=== PATIENT | male | born 1940 | race Caucasian/White ===

== ENCOUNTER 2018-05-07 14:17 | Inpatient (IN) | payer MEDICARE, OTHER ==
[2018-05-07] MEDS ORDERED: Fentanyl 100 MCG/2 ML VIAL ONE ×2 (14:23→14:52)
[2018-05-07] MEDS ORDERED: Succinylcholine Chloride 20 MG/ML 10 ml SYRINGE FS ONE (14:26)
[2018-05-07 14:34] LABS: Hemoglobin 16.5 g/dL (14.0-18.0); Mean Corpuscular HGB CONC 35.2 g/dL (32.0-36.0); Mean Corpuscular Hemoglobin 34.3 pg (27.0-31.0); Mean Corpuscular Volume 97.3 fL (78.0-98.0); Mean Platelet Volume 6.4 fL (7.4-10.4); Platelet Count 176 thou/uL (130-400); RBC Distribution Width 12.6 % (11.5-14.5); Red Blood Cell (RBC) Count 4.82 mill/uL (4.70-6.10); White Blood Cell (WBC) Count 22.9 thou/uL (4.8-10.8)
[2018-05-07] MEDS ORDERED: Calcium Chloride 1 GM/10 ML Abboject SYRINGE ONE (14:37)
[2018-05-07 14:39] LABS: PTT 26.8 SEC (22.9-36.1)
[2018-05-07 14:46] LABS: ALT (SGPT) 21 U/L (8-55); AST (SGOT) 40 U/L (5-34); Albumin 3.3 g/dL (3.4-4.8); Alkaline Phosphatase 63 U/L (40-150); Anion Gap 14 mmol/L (10-20); BUN (Urea Nitrogen) 24 mg/dL (8.4-25.7); Calc. Creatinine Clearance 0 mL/min (70-130); Carbon Dioxide 22 mmol/L (23-31); Chloride 105 mmol/L (98-107); Estimated GFR-MDRD 51; Globulin 2.7 g/dL (2.4-3.5); Glucose 186 mg/dL (83-110); Potassium 3.7 mmol/L (3.5-5.1); Sodium 137 mmol/L (136-145)
[2018-05-07 14:51] LABS: INR-International Normal Ratio 1.2; Prothrombin Time 14.8 SEC (12.0-14.7)
[2018-05-07] MEDS ORDERED: fentaNYL Citrate/PF 2,000 MCG in Sodium Chloride 0.9% 60 ML IV SCH ×2 (14:52→17:00)
[2018-05-07] MEDS ORDERED: ISOVUE-370 76%-LOCM 1 ML ONE (14:57)
[2018-05-07 15:00] LABS: Band 5 % (5-11); Eosinophils 2 % (0-10); Lymphocytes 21 % (21-51); MDiff Complete? YES; Monocytes 2 % (0-10); Neutrophil 70 % (42-75); PLT Morphology Comment Appears Adequate
[2018-05-07 15:05] LABS: Troponin I 0.012 ng/mL (< 0.028)
[2018-05-07 15:19] LABS: CKMB 21.2 ng/mL (0-6.6)
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
[2018-05-07 16:10] LABS: CO2 Tension 44.4 mmHg (35.0-45.0); pH, Arterial 7.31 (7.35-7.45)
[2018-05-07 16:11] LABS: Actual Bicarbonate (HCO3a) 21.8 mEq/L (22-28); Base Excess (BEa) -4.3 mEq/L (-2.0 to +3.0); Hematocrit-ABG 35.2 % (42.0-52.0); Hemoglobin (Hb) 11.9 g/dL (14.0-18.0)
[2018-05-07 16:12] LABS: Analyzer IN Cardio ER; Calcium, Ionized 1.3 mmol/L (1.12-1.30); Puncture Site RBA
--- NOTE | 2018-05-07 16:47 | RAD ---
AP CHEST: Indication: Intubation. Comparison: 05-07-18 FINDINGS: The patient has been intubated in the interval. The ET tube tip is seen approximately 5.7 cm above th e level of the brenda. There has been interval placement of a left sided subclavian central venous ca theter with the tip projecting in the region of the brachiocephalic SVC junction. There has been inte rval placement of a large bore left sided chest tube with reduction of the left apical pneumothorax s een on the comparison exam. Small left basilar pneumothorax remains. The extensive subcutaneous emphy sema is now seen along the left chest wall. Gastric catheter projects in the region of the body. Ther e is mild right basilar atelectasis. IMPRESSION: 1. Tubes and lines as above. 2. Reduction of left apical pneumothorax. Small left basilar pneumothorax suspected. 3. Stable cardiomegaly. 4. Mild right basilar atelectasis. POS: [facility]
[2018-05-07] MEDS ORDERED: Ventilator Sedation Protocol 1 EACH FS SCH (16:52)
[2018-05-07] MEDS ORDERED: Ondansetron ODT 4 MG TAB PO PRN (16:52)
[2018-05-07] MEDS ORDERED: Dextrose 5% in Water 1,000 ML IV PRN (16:52)
[2018-05-07] MEDS ORDERED: Dextrose 50% Abboject 50 ML SYRINGE SLOW IVP PRN (16:52)
[2018-05-07] MEDS ORDERED: Rib Fracture Protocol IV SCH (16:52)
[2018-05-07] MEDS ORDERED: hydrALAZINE 20 MG/ML VIAL SLOW IVP PRN (16:52)
[2018-05-07] MEDS ORDERED: Ondansetron HCl/PF 4 MG/2 ML Vial IVP PRN (16:52)
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
[2018-05-07] MEDS ORDERED: Propofol BOLUS 1,000 MG/100 ML VIAL IV PRN (17:00)
[2018-05-07] MEDS: Sodium Chloride 0.9% 1,000 ML IV SCH (17:00)
[2018-05-07] MEDS ORDERED: Fentanyl BOLUS 250 ML IVPB PRN (17:00)
[2018-05-07] MEDS ORDERED: Lorazepam 2 MG/ML VIAL SLOW IVP PRN (17:00)
[2018-05-07] MEDS ORDERED: DISCONTINUE PREVIOUS NARCOTIC PAIN MEDICATIONS AND BENZODIAZEPINES FS SCH (17:00)
[2018-05-07] MEDS ORDERED: Propofol 1,000 MG/100 ML VIAL IV PRN (17:00)
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
[2018-05-07 17:16] VITALS: BMI 32.3
[2018-05-07 17:27] LABS: Hemoglobin 12.6 g/dL (14.0-18.0)
[2018-05-07] MEDS ORDERED: Albumin 5% 500 ML ONE (17:41)
[2018-05-07] MEDS ORDERED: Hydrocortisone Sod Succ/PF 100 mg/2 ml Vial IVP SCH (17:45)
[2018-05-07] MEDS ORDERED: Sodium Chloride 0.9% 500 ML IV SCH (17:45)
[2018-05-07] MEDS ORDERED: Hydrocortisone Sod Succ/PF 100 mg/2 ml Vial ONE (17:53)
[2018-05-07] MEDS ORDERED: Acetaminophen 650 MG Suppository PR SCH (18:00)
[2018-05-07] MEDS: Ketorolac Tromethamine 30 MG/ML VIAL IVP SCH (18:15)
[2018-05-07] MEDS ORDERED: Norepinephrine 8 MG/0.9% NS 250 ML ONE (18:26)
[2018-05-07] MEDS ORDERED: Acetaminophen 650 MG in Premix Bag 1 BAG IVPB SCH (19:15)
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
[2018-05-07] MEDS ORDERED: Sodium Chloride 0.9% 500 ML IVPB SCH (20:45)
[2018-05-07 22:58] LABS: Hemoglobin 12.4 g/dL (14.0-18.0)
[2018-05-08] MEDS: Acetaminophen 650 MG in Premix Bag 1 BAG IVPB SCH ×2 (00:25→05:41)
[2018-05-08] MEDS: Ketorolac Tromethamine 30 MG/ML VIAL IVP SCH ×2 (00:26→06:35)
[2018-05-08] MEDS ORDERED: Midazolam HCl 2 mg/2 ml Vial SLOW IVP PRN (03:58)
[2018-05-08] MEDS: Sodium Chloride 0.9% 250 ML 250 ML IVPB PRN ×2 (04:00→05:38)
[2018-05-08 05:17] LABS: Anion Gap 11 mmol/L (10-20); BUN (Urea Nitrogen) 32 mg/dL (8.4-25.7); Calc. Creatinine Clearance 43 mL/min (70-130); Calcium 7.5 mg/dL (7.8-10.44); Carbon Dioxide 22 mmol/L (23-31); Chloride 111 mmol/L (98-107); Estimated GFR-MDRD 35; Glucose 204 mg/dL (83-110); Potassium 4.7 mmol/L (3.5-5.1); Sodium 139 mmol/L (136-145)
[2018-05-08 05:34] LABS: #Lymphocytes 0.5 thou/uL (1.20-3.40); #Monocytes 0.8 thou/uL (0.11-0.59); #Neutrophils 11.1 thou/uL (1.40-6.50); %Eosinophils 0.2 % (0.0-10.0); %Lymphocytes 4.2 % (21.0-51.0); %Monocytes 6.6 % (0.0-10.0); Mean Corpuscular HGB CONC 35.3 g/dL (32.0-36.0); Mean Corpuscular Hemoglobin 33.7 pg (27.0-31.0); Mean Corpuscular Volume 95.5 fL (78.0-98.0); Mean Platelet Volume 6.7 fL (7.4-10.4); PLT Morphology Comment Appears Decreased; Platelet Count 106 thou/uL (130-400); RBC Distribution Width 13.7 % (11.5-14.5); Red Blood Cell (RBC) Count 3.27 mill/uL (4.70-6.10); White Blood Cell (WBC) Count 12.4 thou/uL (4.8-10.8)
[2018-05-08] MEDS: Sodium Chloride 0.9% 1,000 ML IV SCH (05:36)
[2018-05-08 07:43] LABS: CO2 Tension 32.2 mmHg (35.0-45.0); pH, Arterial 7.38 (7.35-7.45)
[2018-05-08 07:44] LABS: Actual Bicarbonate (HCO3a) 18.5 mEq/L (22-28); Base Excess (BEa) -5.8 mEq/L (-2.0 to +3.0); Hemoglobin (Hb) 10.4 g/dL (14.0-18.0); O2 Tension (PaO2) 88.5 mmHg (> 70.0)
[2018-05-08 07:45] LABS: Calcium, Ionized 1.1 mmol/L (1.12-1.30); Puncture Site RRA
[2018-05-08] MEDS ORDERED: Dextrose 5% in Water 1,000 ML IV PRN (08:30)
[2018-05-08] MEDS ORDERED: Dextrose 50% Abboject 50 ML SYRINGE IVP PRN (08:30)
[2018-05-08] MEDS ORDERED: Calcium Chloride 13.6 MEQ in Sodium Chloride 0.9% 100 ML IVPB SCH (08:45)
--- NOTE | 2018-05-08 08:54 | RAD ---
AP VIEW OF THE CHEST: INDICATION: Chest tube placement. COMPARISON: Prior exam dated 05/07/18. FINDINGS: Tubes and lines are stable. No appreciable pneumothorax is evident. Subcutaneous emphysema over the left chest wall has slightly improved. Multiple bilateral rib fractures are stable. Cardiomegaly p ersists. IMPRESSION: 1. No pneumothorax. 2. Improving subcutaneous emphysema over the left chest wall. 3. Persistent left lower lobe contusion. 4. Tubes and lines are stable. 5. Stable cardiomegaly. POS: [facility]
[2018-05-08] MEDS: Sodium Bicarbonate 150 MEQ in Dextrose 5% in Water 850 ML IV SCH ×3 (09:03→23:00)
[2018-05-08] MEDS: Gabapentin 100 MG CAP PO SCH ×3 (09:10→20:49)
[2018-05-08] MEDS: Famotidine/PF 20 mg/2ml Vial SLOW IVP SCH (09:59)
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
[2018-05-08 11:57] LABS: Hemoglobin 9.5 g/dL (14.0-18.0)
[2018-05-08] MEDS ORDERED: Ketorolac Tromethamine 30 MG/ML VIAL IVP SCH (12:00)
[2018-05-08] MEDS: Acetaminophen 1,000 MG in Premix Bag 1 BAG IVPB SCH ×2 (12:49→17:33)
[2018-05-08] MEDS: Insulin Regular 300 UNITS/3 ML VIAL SC PRN ×2 (13:17→16:15)
[2018-05-08 13:30] LABS: Troponin I 0.032 ng/mL (< 0.028)
[2018-05-08] MEDS ORDERED: Albumin 25% 25 GM/100 ML BOT IVPB SCH (20:15)
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
[2018-05-09] MEDS: Acetaminophen 1,000 MG in Premix Bag 1 BAG IVPB SCH ×2 (00:04→05:45)
[2018-05-09] MEDS ORDERED: Midazolam HCl 2 mg/2 ml Vial IVP SCH (04:45)
[2018-05-09] MEDS: Sodium Bicarbonate 150 MEQ in Dextrose 5% in Water 850 ML IV SCH (05:45)
[2018-05-09] MEDS: Insulin Regular 300 UNITS/3 ML VIAL SC PRN (06:13)
[2018-05-09 06:43] LABS: Anion Gap 9 mmol/L (10-20); BUN (Urea Nitrogen) 39 mg/dL (8.4-25.7); Calc. Creatinine Clearance 57 mL/min (70-130); Calcium 7.8 mg/dL (7.8-10.44); Carbon Dioxide 31 mmol/L (23-31); Chloride 103 mmol/L (98-107); Estimated GFR-MDRD 49; Glucose 151 mg/dL (83-110); Magnesium 1.7 mg/dL (1.6-2.6); Potassium 3.2 mmol/L (3.5-5.1); Sodium 140 mmol/L (136-145)
[2018-05-09 06:44] LABS: Hemoglobin 8.4 g/dL (14.0-18.0); Mean Corpuscular HGB CONC 35.3 g/dL (32.0-36.0); Mean Corpuscular Hemoglobin 33.5 pg (27.0-31.0); Mean Corpuscular Volume 94.8 fL (78.0-98.0); Mean Platelet Volume 6.5 fL (7.4-10.4); Platelet Count 93 thou/uL (130-400); RBC Distribution Width 13.6 % (11.5-14.5); Red Blood Cell (RBC) Count 2.51 mill/uL (4.70-6.10); White Blood Cell (WBC) Count 10.8 thou/uL (4.8-10.8)
[2018-05-09 07:00] LABS: Band 26 % (5-11); Lymphocytes 5 % (21-51); MDiff Complete? YES; Monocytes 2 % (0-10); Neutrophil 67 % (42-75); PLT Morphology Comment Appears Decreased
[2018-05-09] MEDS ORDERED: Potassium Phosphate 30 MMOL in Sodium Chloride 0.9% 250 ML 250 ML IVPB SCH (07:45)
[2018-05-09] MEDS: Gabapentin 100 MG CAP PO SCH ×3 (08:03→21:32)
[2018-05-09] MEDS: Famotidine/PF 20 mg/2ml Vial SLOW IVP SCH (08:03)
[2018-05-09] MEDS: Sodium Chloride 0.45% 1,000 ML IV SCH ×3 (08:45→23:48)
[2018-05-09] MEDS ORDERED: Magnesium Sulfate 3 GM in Sodium Chloride 0.9% 100 ML IVPB SCH (08:45)
[2018-05-09] MEDS ORDERED: Sodium Bicarbonate Tab 325 MG TAB PER TUBE PRN (09:06)
[2018-05-09] MEDS ORDERED: Pancrelipase DR 12000 1 CAP FS PRN (09:06)
--- NOTE | 2018-05-09 10:17 | RAD ---
PORTABLE AP CHEST: Date: 05/09/18 HISTORY: Follow-up evaluation. Thoracostomy tube in place. COMPARISON: 05/07/18. FINDINGS: Endotracheal tube and nasogastric tube, as well as left-sided thoracostomy tube, remain in place and unchanged in position. No obvious pneumothorax is seen on the left. There is subcutaneous emphysema s een along the lateral left lower chest. This exam is obtained in shallow depth of inspiration and the re is evidence of bibasilar atelectasis. Cardiac silhouette and central bronchovascular markings are accentuated by the depth of inspiration and portable technique. Left subclavian central venous cathet er remains in place and unchanged in position. There has been no significant interval change given di fferences in technique. IMPRESSION: Overall stable chest with lines and tubes unchanged in position. POS: [facility]
[2018-05-09] MEDS ORDERED: Cyclobenzaprine 10 MG TAB PO PRN (10:45)
[2018-05-09] MEDS: traMADol HCl 50 MG TAB PO SCH ×3 (10:56→23:16)
[2018-05-09] MEDS: Acetaminophen 500 MG TAB PO SCH ×3 (10:56→23:16)
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
[2018-05-09] MEDS: Ibuprofen 600 MG TAB PO SCH ×2 (14:09→21:32)
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
[2018-05-09 21:51] LABS: Hemoglobin 8.4 g/dL (14.0-18.0)
[2018-05-10 05:18] LABS: Band 41 % (5-11); Eosinophils 1 % (0-10); Hemoglobin 7.5 g/dL (14.0-18.0); Lymphocytes 7 % (21-51); MDiff Complete? YES; Mean Corpuscular HGB CONC 34.1 g/dL (32.0-36.0); Mean Corpuscular Volume 96.8 fL (78.0-98.0); Mean Platelet Volume 6.3 fL (7.4-10.4); Monocytes 3 % (0-10); Neutrophil 48 % (42-75); PLT Morphology Comment Appears Decreased; Platelet Count 95 thou/uL (130-400); RBC Distribution Width 13.5 % (11.5-14.5); Red Blood Cell (RBC) Count 2.27 mill/uL (4.70-6.10); White Blood Cell (WBC) Count 12.1 thou/uL (4.8-10.8)
[2018-05-10] MEDS: Acetaminophen 500 MG TAB PO SCH ×4 (05:28→23:53)
[2018-05-10] MEDS: traMADol HCl 50 MG TAB PO SCH ×4 (05:28→23:53)
[2018-05-10] MEDS: Ibuprofen 600 MG TAB PO SCH ×3 (05:29→21:40)
[2018-05-10] MEDS: Sodium Chloride 0.45% 1,000 ML IV SCH ×3 (06:41→21:40)
[2018-05-10 06:42] LABS: Anion Gap 13 mmol/L (10-20); BUN (Urea Nitrogen) 46 mg/dL (8.4-25.7); Calc. Creatinine Clearance 57 mL/min (70-130); Calcium 7.4 mg/dL (7.8-10.44); Carbon Dioxide 29 mmol/L (23-31); Chloride 100 mmol/L (98-107); Estimated GFR-MDRD 49; Glucose 120 mg/dL (83-110); Phosphorus 3.1 mg/dL (2.3-4.7); Potassium 4.1 mmol/L (3.5-5.1); Sodium 138 mmol/L (136-145)
[2018-05-10 06:45] LABS: Actual Bicarbonate (HCO3a) 25.8 mEq/L (22-28); Base Excess (BEa) -0.6 mEq/L (-2.0 to +3.0); CO2 Tension 51.1 mmHg (35.0-45.0); Hemoglobin (Hb) 9.2 g/dL (14.0-18.0); O2 Tension (PaO2) 66.4 mmHg (> 70.0); pH, Arterial 7.32 (7.35-7.45)
[2018-05-10 06:46] LABS: ALV-art Gradient 582.725 (0-20); Puncture Site RRA
[2018-05-10] MEDS ORDERED: Calcium Chloride 1 GM/10 ML Abboject SYRINGE IVP SCH (08:30)
--- NOTE | 2018-05-10 08:30 | RAD ---
PORTABLE CHEST: COMPARISON: Prior day's study. HISTORY: Respiratory distress. FINDINGS: Endotracheal and NG Tubes have been removed. Left subclavian is unchanged in position. A left chest tube is in place. There has been development of a left-sided pneumothorax with volume l oss changes in the left lung. Right lung changes are stable. IMPRESSION: Left-sided chest tube which does not appear changed in position; however, there has been development of a left-sided pneumothorax and associated lung atelectasis. Findings telephoned to Allison, the patient's nurse. CODE CR POS: [facility]
[2018-05-10] MEDS: Famotidine 20 MG TAB PO SCH (09:34)
[2018-05-10] MEDS: Gabapentin 100 MG CAP PO SCH ×3 (09:34→21:40)
[2018-05-10] MEDS ORDERED: Furosemide 40 MG/4 ML VIAL SLOW IVP SCH (11:30)
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
[2018-05-11] MEDS: Sodium Chloride 0.45% 1,000 ML IV SCH ×4 (01:22→20:53)
[2018-05-11 05:04] LABS: Mean Corpuscular HGB CONC 34.5 g/dL (32.0-36.0); Mean Corpuscular Hemoglobin 33.6 pg (27.0-31.0); Mean Corpuscular Volume 97.4 fL (78.0-98.0); Mean Platelet Volume 6.8 fL (7.4-10.4); Platelet Count 133 thou/uL (130-400); RBC Distribution Width 13.2 % (11.5-14.5); Red Blood Cell (RBC) Count 2.68 mill/uL (4.70-6.10); White Blood Cell (WBC) Count 11.5 thou/uL (4.8-10.8)
[2018-05-11 05:14] LABS: Anion Gap 12 mmol/L (10-20); BUN (Urea Nitrogen) 50 mg/dL (8.4-25.7); Calc. Creatinine Clearance 53 mL/min (70-130); Calcium 8.1 mg/dL (7.8-10.44); Carbon Dioxide 26 mmol/L (23-31); Chloride 100 mmol/L (98-107); Estimated GFR-MDRD 45; Glucose 93 mg/dL (83-110); Phosphorus 3.2 mg/dL (2.3-4.7); Potassium 4.3 mmol/L (3.5-5.1); Sodium 134 mmol/L (136-145)
[2018-05-11] MEDS: traMADol HCl 50 MG TAB PO SCH (05:23)
[2018-05-11] MEDS: Acetaminophen 500 MG TAB PO SCH (05:23)
[2018-05-11] MEDS: Ibuprofen 600 MG TAB PO SCH ×2 (05:24→13:08)
[2018-05-11 05:26] LABS: Band 22 % (5-11); Eosinophils 1 % (0-10); Hypochromia SLIGHT = 6-15 cells (100X) (0-5/hpf); Lymphocytes 2 % (21-51); MDiff Complete? YES; Monocytes 8 % (0-10); Neutrophil 67 % (42-75); PLT Morphology Comment Appears Adequate
--- NOTE | 2018-05-11 08:31 | RAD ---
PORTABLE CHEST: Date: 05/11/18 HISTORY: Respiratory distress. COMPARISON: Prior day's study. FINDINGS: Heart size is enlarged. A left-sided chest tube remains in place. Lung is now better expanded. The le ft apical pneumothorax has resolved. There is considerable increased density in the left base, probab ly related to a combination of infiltrate or atelectasis with effusion. IMPRESSION: Interval improvement in left-sided pneumothorax. POS: OFF
[2018-05-11] MEDS: Gabapentin 100 MG CAP PO SCH ×3 (09:00→20:55)
[2018-05-11] MEDS: Famotidine 20 MG TAB PO SCH (09:00)
--- NOTE | 2018-05-11 10:55 | RAD ---
ABDOMEN ONE VIEW: History: Dobbhoff placement. Comparison: CT 05-08-18 FINDINGS: The Dobbhoff tube tip is in the gastric fundus. IMPRESSION: 1. Dobbhoff tube tip in gastric fundus, needs advancing. 2. Layering left effusion. 3. Subcutaneous emphysema along the left hemiabdomen. POS: KAELYN
[2018-05-11] MEDS: HYDROcodone/Acetaminophen 10/325 mg Tablet PO SCH ×2 (12:02→18:22)
[2018-05-11] MEDS ORDERED: Hydrocortisone Sod Succ/PF 100 mg/2 ml Vial IVP SCH (15:15)
[2018-05-11] MEDS: Hydrocortisone Sod Succ/PF 100 mg/2 ml Vial IVP SCH ×2 (15:39→21:48)
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
[2018-05-11] MEDS: Amiodarone HCl 450 MG, Admixture Fee 1 EACH in Dextrose 5% in Water 250 ML IVPB SCH (23:25)
[2018-05-11] MEDS ORDERED: Amiodarone HCl 150 MG, Admixture Fee 1 EACH in Dextrose 5% in Water 100 ML IVPB SCH (23:30)
[2018-05-11 23:42] LABS: Anion Gap 14 mmol/L (10-20); BUN (Urea Nitrogen) 58 mg/dL (8.4-25.7); Calc. Creatinine Clearance 49 mL/min (70-130); Carbon Dioxide 26 mmol/L (23-31); Chloride 98 mmol/L (98-107); Estimated GFR-MDRD 41; Glucose 144 mg/dL (83-110); Phosphorus 3.2 mg/dL (2.3-4.7); Potassium 4.1 mmol/L (3.5-5.1); Sodium 134 mmol/L (136-145)
[2018-05-11 23:45] LABS: Band 49 % (5-11); Hemoglobin 9.3 g/dL (14.0-18.0); Lymphocytes 4 % (21-51); MDiff Complete? YES; Mean Corpuscular HGB CONC 33.4 g/dL (32.0-36.0); Mean Corpuscular Hemoglobin 32.9 pg (27.0-31.0); Mean Corpuscular Volume 98.4 fL (78.0-98.0); Mean Platelet Volume 5.9 fL (7.4-10.4); Monocytes 2 % (0-10); Neutrophil 45 % (42-75); Nucleated RBC 1 % (0); PLT Morphology Comment Appears Adequate; Platelet Count 179 thou/uL (130-400); RBC Distribution Width 13.2 % (11.5-14.5); Red Blood Cell (RBC) Count 2.83 mill/uL (4.70-6.10); White Blood Cell (WBC) Count 14.6 thou/uL (4.8-10.8)
[2018-05-12] MEDS: HYDROcodone/Acetaminophen 10/325 mg Tablet PO SCH ×2 (00:18→07:39)
[2018-05-12] MEDS ORDERED: Midazolam HCl 2 mg/2 ml Vial SLOW IVP SCH (03:00)
[2018-05-12] MEDS ORDERED: Furosemide 20 MG/2 ML VIAL SLOW IVP SCH (03:00)
[2018-05-12] MEDS: Hydrocortisone Sod Succ/PF 100 mg/2 ml Vial IVP SCH ×3 (04:58→15:51)
[2018-05-12 05:41] LABS: Anion Gap 12 mmol/L (10-20); BUN (Urea Nitrogen) 61 mg/dL (8.4-25.7); Calc. Creatinine Clearance 44 mL/min (70-130); Calcium 8.1 mg/dL (7.8-10.44); Carbon Dioxide 29 mmol/L (23-31); Chloride 98 mmol/L (98-107); Estimated GFR-MDRD 37; Glucose 148 mg/dL (83-110); Magnesium 2.3 mg/dL (1.6-2.6); Phosphorus 4.1 mg/dL (2.3-4.7); Potassium 4.4 mmol/L (3.5-5.1); Sodium 135 mmol/L (136-145)
[2018-05-12 05:46] LABS: Band 49 % (5-11); Hemoglobin 9.5 g/dL (14.0-18.0); Lymphocytes 2 % (21-51); MDiff Complete? YES; Mean Corpuscular HGB CONC 34.2 g/dL (32.0-36.0); Mean Corpuscular Hemoglobin 33.8 pg (27.0-31.0); Mean Corpuscular Volume 98.9 fL (78.0-98.0); Mean Platelet Volume 6.1 fL (7.4-10.4); Monocytes 3 % (0-10); Neutrophil 46 % (42-75); Nucleated RBC 2 % (0); PLT Morphology Comment Appears Adequate; Platelet Count 211 thou/uL (130-400); RBC Distribution Width 13.2 % (11.5-14.5); Red Blood Cell (RBC) Count 2.79 mill/uL (4.70-6.10); White Blood Cell (WBC) Count 15.5 thou/uL (4.8-10.8)
[2018-05-12] MEDS: Amiodarone HCl 450 MG, Admixture Fee 1 EACH in Dextrose 5% in Water 250 ML IVPB SCH (06:50)
[2018-05-12] MEDS ORDERED: Sodium Bicarb 50 MEQ/50 ML Abboject 8.4% SYRINGE IVP SCH (07:00)
[2018-05-12 07:21] LABS: CO2 Tension 66.5 mmHg (35.0-45.0)
[2018-05-12 07:22] LABS: Actual Bicarbonate (HCO3a) 25.5 mEq/L (22-28); O2 Tension (PaO2) 51.9 mmHg (> 70.0)
[2018-05-12 07:23] LABS: Calcium, Ionized 1.1 mmol/L (1.12-1.30); Hemoglobin (Hb) 9.3 g/dL (14.0-18.0); Puncture Site RRA
[2018-05-12 07:24] LABS: ALV-art Gradient 328.425 (0-20)
[2018-05-12] MEDS: Sodium Chloride 0.45% 1,000 ML IV SCH (07:42)
[2018-05-12] MEDS ORDERED: Metolazone 2.5 MG TAB PO SCH (08:30)
[2018-05-12] MEDS ORDERED: EPINEPHrine 1 MG/ML AMP ONE (08:37)
[2018-05-12] MEDS ORDERED: EPINEPHrine 1 MG/10 ML Abboject SYRINGE ONE ×3 (08:37→20:00)
[2018-05-12 08:46] LABS: CO2 Tension 138.5 mmHg (35.0-45.0); O2 Tension (PaO2) 83.7 mmHg (> 70.0); pH, Arterial 6.96 (7.35-7.45)
[2018-05-12 08:47] LABS: Actual Bicarbonate (HCO3a) 30.6 mEq/L (22-28); Base Excess (BEa) -3.4 mEq/L (-2.0 to +3.0)
[2018-05-12] MEDS ORDERED: Fentanyl BOLUS 250 ML IVPB PRN (08:47)
[2018-05-12] MEDS ORDERED: fentaNYL Citrate/PF 2,000 MCG in Sodium Chloride 0.9% 60 ML IV SCH (08:47)
[2018-05-12 08:48] LABS: Calcium, Ionized 1.1 mmol/L (1.12-1.30)
[2018-05-12 08:49] LABS: Puncture Site RRA
[2018-05-12] MEDS ORDERED: Furosemide 100 MG/10 ML VIAL SLOW IVP SCH (09:00)
[2018-05-12] MEDS ORDERED: Famotidine/PF 20 mg/2ml Vial SLOW IVP SCH (09:00)
[2018-05-12] MEDS ORDERED: DOPamine 400 MG/D5W 250 ML 250 ML ONE (09:34)
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
--- NOTE | 2018-05-12 10:05 | RAD ---
PRELIMINARY REPORT/[facility]/EMERGENTY AFTER-HOURS PROCEDURE XR Chest, 1 View EXAM DATE/TIME: 05/12/2018 3:14 AM CLINICAL HISTORY: 77 years old, male; Signs and symptoms; Dyspnea; Patient HX: SOB; Recent extubation; Eval for pneumo TECHNIQUE: XR of the chest, 1 view. COMPARISON: No relevant prior studies available. FINDINGS: Tubes, lines and devices: Left subclavian venous catheter tip is at the confluence of the brachioceph alic veins and SVC. Lungs: The apex of the left lung and the lateral margin of the base of the left lung are excluded fro m the study. In addition, the study is limited by patient position and portable technique. Large area of airspace opacity in the mid left lung is probably pneumonia. Airspace opacity versus pleural effu terrence at the base of the left lung. Pleural space: No evidence of pneumothorax. Heart/Mediastinum: Normal. No cardiomegaly. Bones/joints: Unremarkable for age. IMPRESSION: 1. Limited study 2. Left subclavian venous catheter tip is at the confluence of the brachiocephalic veins and SVC. 3. Large area of airspace opacity in the mid left lung is probably pneumonia. 4. Airspace opacity versus pleural effusion at the base of the left lung. Thank you for allowing us to participate in the care of your patient. Dictated and Authenticated by: Jeremy Baca MD 05/12/2018 4:55 AM Central Time ([place] & [place]) PORTABLE CHEST SUPINE: History: Chest tube evaluation. Shortness of breath. Comparison: 05-11-18 FINDINGS: Left chest tube is unchanged. There continues to be abnormal opacity in the left lung base and along the left lateral chest wall consistent with pleural fluid, some of which can be loculated. There is cardiomegaly and mild vascular congestion. Some hazy infiltrate and/or edema in the right mi d lung field. IMPRESSION: The fluid in the left chest appears more prominent than yesterday. Vascular congestion is also more p rominent today. Associated air space disease not excluded. I am in agreement with preliminary report. POS: [facility]
[2018-05-12] MEDS: Gabapentin 100 MG CAP PO SCH ×2 (10:20→15:20)
[2018-05-12] MEDS: Heparin 5,000 UNITS/ML VIAL SC SCH ×2 (10:30→15:20)
[2018-05-12] MEDS ORDERED: DOPamine 400 MG/D5W 250 ML 250 ML IVPB SCH (11:00)
--- NOTE | 2018-05-12 13:03 | EKG ---
Test Reason : STAT Blood Pressure : / mmHG Vent. Rate : 136 BPM Atrial Rate : 150 BPM P-R Int : 000 ms QRS Dur : 102 ms QT Int : 296 ms P-R-T Axes : 000 -10 021 degrees QTc Int : 445 ms Atrial fibrillation with rapid ventricular response Possible Anterior infarct , age undetermined Abnormal ECG When compared with ECG of 07-MAY-2018 16:05, (Unconfirmed) Atrial fibrillation has replaced Sinus rhythm Confirmed by ANJEL DUBOSE, SArnol ([id number]) on 05/12/2018 1:03:19 PM Referred By: ARLETTE Confirmed By:DR. Coty HOBBS MD
[2018-05-12] MEDS ORDERED: Acetaminophen 1,000 MG in Premix Bag 1 BAG IVPB PRN (13:13)
--- NOTE | 2018-05-12 13:48 | RAD ---
CHEST 1 VIEW: HISTORY: Chest tube. COMPARISON: 05/12/18 at 3:15 a.m. FINDINGS: Redemonstration of an endotracheal tube, Dobbhoff feeding tube, left-sided central venous catheter, a nd left-sided chest tube. Stable opacification of the left hemithorax. Stable configuration of the cardiac silhouette. Definite pneumothorax is not appreciated. There is cutaneous emphysema in the l eft chest wall. IMPRESSION: No significant interval change. POS: KAELYN
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
[2018-05-12] MEDS ORDERED: Sodium Bicarb 50 MEQ/50 ML Abboject 8.4% SYRINGE ONE ×2 (15:00→20:00)
[2018-05-12 17:09] LABS: pH, Arterial 7.17 (7.35-7.45)
[2018-05-12 17:10] LABS: Actual Bicarbonate (HCO3a) 23.6 mEq/L (22-28); Base Excess (BEa) -5.2 mEq/L (-2.0 to +3.0); CO2 Tension 65.7 mmHg (35.0-45.0)
[2018-05-12 17:11] LABS: Hemoglobin (Hb) 9.6 g/dL (14.0-18.0)
[2018-05-12 17:12] LABS: Puncture Site ALINE
[2018-05-12 17:13] LABS: ALV-art Gradient 432.275 (0-20)
[2018-05-12 17:17] LABS: Base Excess (BEa) 9.4 mEq/L (-2.0 to +3.0); CO2 Tension 76.6 mmHg (35.0-45.0); O2 Tension (PaO2) 166.5 mmHg (> 70.0); pH, Arterial 7.19 (7.35-7.45)
[2018-05-12 17:18] LABS: Hemoglobin (Hb) 9.4 g/dL (14.0-18.0)
[2018-05-12 17:21] LABS: Puncture Site ALINE
[2018-05-12 17:30] VITALS: TEMP 98.9
[2018-05-12 17:41] LABS: Glucose 52 mg/dL (83-110)
[2018-05-12] MEDS ORDERED: Dextrose 50% Abboject 50 ML SYRINGE ONE (17:48)
[2018-05-12] MEDS ORDERED: Dextrose 5%-Lactated Ringers 1,000 ML IV SCH (18:15)
[2018-05-12] MEDS ORDERED: Dextrose 50% Abboject 50 ML SYRINGE SLOW IVP SCH (18:15)
[2018-05-12 19:03] VITALS: BP 135/43
[2018-05-12] MEDS ORDERED: Calcium Chloride 1 GM/10 ML Abboject SYRINGE ONE (20:00)
--- NOTE | 2018-05-13 12:47 | EKG ---
Test Reason : L1 TRAUMA Blood Pressure : / mmHG Vent. Rate : 110 BPM Atrial Rate : 150 BPM P-R Int : 000 ms QRS Dur : 086 ms QT Int : 334 ms P-R-T Axes : 022 -39 027 degrees QTc Int : 452 ms Sinus tachycardia with 1st degree A-V block with Premature atrial complexes in a pattern of bigeminy Left axis deviation Abnormal ECG Confirmed by ARIANNA BUNCH ([id number]), social media editor JAZLYN POND ([id number]) on 05/13/2018 12:47:13 PM Referred By: Confirmed By:ARIANNA BUNCH
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
--- NOTE | 2018-05-15 13:32 | EKG ---
Test Reason : Blood Pressure : / mmHG Vent. Rate : 050 BPM Atrial Rate : 072 BPM P-R Int : 000 ms QRS Dur : 108 ms QT Int : 366 ms P-R-T Axes : 000 048 064 degrees QTc Int : 333 ms Junctional rhythm Low voltage QRS Nonspecific T wave abnormality Abnormal ECG When compared with ECG of 11-MAY-2018 22:46, Junctional rhythm has replaced Atrial fibrillation Vent. rate has decreased BY 86 BPM Borderline criteria for Anterior infarct are no longer Present Confirmed by ANJEL DUBOSE, SArnol ([id number]) on 05/15/2018 1:32:07 PM Referred By: Confirmed By:DR. Coty HOBBS MD
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
== END 2018-05-12 20:08 | disposition expired | DRG 166 ==
LOC: ERS 14:17 → CCU 15:58
PROVIDERS: ADMIT Surgery; ATTEND Surgery
PROC: 30233N1 Transfusion of Nonautologous Red Blood Cells into Peripheral Vein, Percutaneous Approach (ICD-10-PCS; 2018-05-07)
PROC: 5A1945Z Respiratory Ventilation, 24-96 Consecutive Hours (ICD-10-PCS; 2018-05-07)
PROC: 0BH17EZ Insertion of Endotracheal Airway into Trachea, Via Natural or Artificial Opening (ICD-10-PCS; 2018-05-07)
PROC: 0W9B30Z Drainage of Left Pleural Cavity with Drainage Device, Percutaneous Approach (ICD-10-PCS; 2018-05-07)
PROC: 05H633Z Insertion of Infusion Device into Left Subclavian Vein, Percutaneous Approach (ICD-10-PCS; 2018-05-07)
PROC: 0BH17EZ Insertion of Endotracheal Airway into Trachea, Via Natural or Artificial Opening (ICD-10-PCS; principal; 2018-05-12)
PROC: 0B9J8ZX Drainage of Left Lower Lung Lobe, Via Natural or Artificial Opening Endoscopic, Diagnostic (ICD-10-PCS; 2018-05-12)
PROC: 0B9C8ZX Drainage of Right Upper Lung Lobe, Via Natural or Artificial Opening Endoscopic, Diagnostic (ICD-10-PCS; 2018-05-12)
PROC: 0B9G8ZX Drainage of Left Upper Lung Lobe, Via Natural or Artificial Opening Endoscopic, Diagnostic (ICD-10-PCS; 2018-05-12)
PROC: 0B9D8ZX Drainage of Right Middle Lung Lobe, Via Natural or Artificial Opening Endoscopic, Diagnostic (ICD-10-PCS; 2018-05-12)
PROC: 0B9F8ZX Drainage of Right Lower Lung Lobe, Via Natural or Artificial Opening Endoscopic, Diagnostic (ICD-10-PCS; 2018-05-12)
PROC: 04HY32Z Insertion of Monitoring Device into Lower Artery, Percutaneous Approach (ICD-10-PCS; 2018-05-12)
PROC: 5A12012 Performance of Cardiac Output, Single, Manual (ICD-10-PCS; 2018-05-12)
DX: S27.2XXA Traumatic hemopneumothorax, initial encounter (principal); T79.4XXA Traumatic shock, initial encounter; J96.01 Acute respiratory failure with hypoxia; J96.02 Acute respiratory failure with hypercapnia; S06.0X1A Concussion with loss of consciousness of 30 minutes or less, initial encounter; S22.20XA Unspecified fracture of sternum, initial encounter for closed fracture; S12.400A Unspecified displaced fracture of fifth cervical vertebra, initial encounter for closed fracture; S32.019A Unspecified fracture of first lumbar vertebra, initial encounter for closed fracture; S32.029A Unspecified fracture of second lumbar vertebra, initial encounter for closed fracture; S32.039A Unspecified fracture of third lumbar vertebra, initial encounter for closed fracture; S22.43XA Multiple fractures of ribs, bilateral, initial encounter for closed fracture; D62 Acute posthemorrhagic anemia; E27.40 Unspecified adrenocortical insufficiency; N17.9 Acute kidney failure, unspecified; S27.321A Contusion of lung, unilateral, initial encounter; T79.7XXA Traumatic subcutaneous emphysema, initial encounter; I48.91 Unspecified atrial fibrillation; I46.9 Cardiac arrest, cause unspecified; R00.1 Bradycardia, unspecified; J98.4 Other disorders of lung; E87.6 Hypokalemia; E83.42 Hypomagnesemia; E83.39 Other disorders of phosphorus metabolism; V49.40XA Driver injured in collision with unspecified motor vehicles in traffic accident, initial encounter; I95.9 Hypotension, unspecified; E83.51 Hypocalcemia; S92.001A Unspecified fracture of right calcaneus, initial encounter for closed fracture; N40.0 Benign prostatic hyperplasia without lower urinary tract symptoms; I10 Essential (primary) hypertension; E11.9 Type 2 diabetes mellitus without complications; E78.5 Hyperlipidemia, unspecified; N28.89 Other specified disorders of kidney and ureter
CPT/HCPCS: 31500; 32551; 36415; 36416; 36430; 36556; 51702; 70450; 71045; 71260; 72125; 74018; 74177; 80048; 80053; 82150; 82533; 82550; 82553; 82805; 83735; 83880; 84100; 84484; 85007; 85025; 85027; 85610; 85730; 86850; 86900; 86901; 87070; 87077; 87186; 90471; 92950; 93005; 93010; 93306; 94002; 94003; 94640; 94660; 96361; 96365; 96375; 96376; C1769; G0390; G8978-GP-CM; G8979-GP-CK; J0131; J0171; J0282; J1265; J1644; J1720; J1815; J1885; J1940; J2250; J2270; J3010; J3475; J7050; J7070; J7620; L4386; P9016; P9045; P9047; S0028